=== PATIENT | male | born 1950 | race Asian ===

== ENCOUNTER 2024-12-23 21:06 | Emergency (ER) | payer SELFPAY ==
[2024-12-23 21:36] LABS: #Basophils 0.04 10x3/uL (0.0-0.2); #Eosinophils 0.34 10x3/uL (0.0-0.5); #Monocytes 1.16 10x3/uL (0.0-1.1); #Neutrophils 5.96 10x3/uL (1.5-8.4); %Basophils 0.4 % (0.0-2.0); %Eosinophils 3.2 % (0.0-6.0); %Lymphocytes 28.5 % (18.0-47.0); %Monocytes 11.0 % (0.0-10.0); %Neutrophils 56.6 % (40.0-75.0); Hematocrit 44.2 % (38.8-50.0); Hemoglobin 14.5 g/dL (13.5-17.5); Mean Corpuscular Hemoglobin 29.1 pg (27.0-33.0); Mean Corpuscular Volume 88.8 fL (81.2-95.1); Platelet Count 207 10x3/uL (150-450); Red Blood Cell (RBC) Count 4.98 10x6/uL (4.32-5.72); White Blood Cell (WBC) Count 10.53 10x3/uL (3.5-10.5)
[2024-12-23 21:49] LABS: ALT (SGPT) 13 U/L (Less than 45); AST (SGOT) 28 U/L (11-34); Albumin 4.6 g/dL (3.1-4.5); Alkaline Phosphatase 50 U/L (40-110); Anion Gap 14 mmol/L (10-20); BUN (Urea Nitrogen) 21 mg/dL (8.4-25.7); Bilirubin, Total 0.4 mg/dL (0.3-1.2); Calc. Creatinine Clearance 0 mL/min (70-130); Calcium 9.5 mg/dL (7.8-10.44); Carbon Dioxide 22 mmol/L (23-31); Chloride 107 mmol/L (98-107); Globulin 3.8 g/dL (2.4-3.5); Glucose 89 mg/dL (83-110); Potassium 4.2 mmol/L (3.5-5.1); Sodium 139 mmol/L (136-145)
[2024-12-23 22:24] LABS: Troponin I Less than 0.010 ng/mL (< 0.028)
[2024-12-23] MEDS ORDERED: cloNIDine 0.1 MG TAB ONE (22:33)
== END 2024-12-23 23:02 | disposition home or self-care (01) ==
LOC: CSHERS 21:06
DX: I16.0 Hypertensive urgency (principal); I10 Essential (primary) hypertension; Z79.899 Other long term (current) drug therapy
CPT/HCPCS: 70450; 71045; 80053; 84484; 85025; 93005; 96374